=== PATIENT | female | born 1955 | race Caucasian/White ===

== ENCOUNTER 2018-03-10 20:59 | Emergency (ER) | payer BC ==
[2018-03-10 21:12] VITALS: BP 139/85
[2018-03-10] MEDS ORDERED: LET GEL TOPICAL 1 EA SYR TP ONE (21:25)
--- NOTE | 2018-03-10 22:07 | EDPHY ---
H & P Smoking Status: Never smoked Time Seen by Provider: 03/10/18 22:05 HPI/ROS: CHIEF COMPLAINT: Facial laceration HISTORY OF PRESENT ILLNESS: Patient is a 62-year-old male who suffered a forehead laceration after she tripped and fell on believe she bumped herself in the forehead with her bracelets. She denies any loss consciousness, neck pain, use of blood thinners, chest pain, shortness of breath, syncope. REVIEW OF SYSTEMS: Constitutional: No fever, no chills. Eyes: No discharge. No eye pain ENT: No sore throat. Cardiovascular: No chest pain, no palpitations. Respiratory: No cough, no shortness of breath. Gastrointestinal: No abdominal pain, no vomiting. Genitourinary: No hematuria. Musculoskeletal: No back pain. Skin: No rashes. Neurological: No headache. (Roger Solis) Physical Exam: General Appearance: Alert and no distress. Eyes: Pupils equal and round no injection. Respiratory: Chest is nontender, lungs are clear to auscultation. Cardiac: regular rate and rhythm. Gastrointestinal: Abdomen is soft and nontender, no masses, bowel sounds normal. Musculoskeletal: Neck is supple and nontender. Extremities have full range of motion and are nontender. Skin: No rashes. 2 cm vertical laceration midline to the forehead no involvement of the eye or eyelids. (Roger Solis) Constitutional: Initial Vital Signs Temperature (C) 36.3 C 03/10/18 21:09 Heart Rate 95 03/10/18 21:09 Respiratory Rate 20 03/10/18 21:09 Blood Pressure 139/85 H 03/10/18 21:09 O2 Sat (%) 89 L 03/10/18 21:09 O2 Delivery Mode Room Air Allergies/Adverse Reactions: No Known Allergies Allergy (Unverified 03/10/18 21:11) Home Medications: Medication Instructions Recorded NK [No Known Home Meds] 03/10/18 Medical Decision Making Procedures: Procedure: Laceration repair. Verbal consent was obtained from the patient. The facial laceration on the midline forehead was anesthetized in the usual fashion. The wound was irrigated , draped and explored to its base. There were no deep structures involved. No tendon injury was identified. The wound was repaired with 6.0 nylon. The wound repair was well approximated with 6 sutures. The procedure was performed by myself. (Roger Solis) Differential Diagnosis: Skull fracture, orbital injury, open globe, facial bone fracture, right wrist fracture (Roger Solis) The patient was evaluated and managed by the physician respiratory care assistant. I have reviewed this chart and I agree with the findings and plan of care as documented , as indicated by my signature. I am the secondary supervising physician. ( Amirah Castaneda) - Data Points Medications Given: Discontinued Medications Hydrocodone Bitart/Acetaminophen (Lockhart 5/325mg Prepack#6) 1 btl TAKEHOME EDNOW ONE Stop: 03/10/18 22:14 Last Admin: 03/10/18 22:14 Dose: 1 btl Tetracaine/Epinephrine/Lidocaine (Let Gel Topical) 1 ea TP EDNOW ONE Stop: 03/10/18 21:26 Last Admin: 03/10/18 21:34 Dose: Not Given Departure - Departure Disposition: Home, Routine, Self-Care Clinical Impression: Strain of wrist, left, Minor closed head injury, Facial laceration Condition: Good Instructions: Hydrocodone/Acetaminophen (By mouth), Laceration (ED) Additional Instructions: Follow-up in 5 days for suture removed Referrals: NONE *PRIMARY CARE P,. [Primary Care Provider] - As per Instructions [facility],. [Clinic] - As per Instructions
[2018-03-10] MEDS ORDERED: HYDROCOD/APAP 5/325 PREPACK#6 BTL TAKEHOME ONE ×2 (22:13)
== END 2018-03-10 22:16 | disposition home or self-care (01) ==
PROC: 0HQ1XZZ Repair Face Skin, External Approach (ICD-10-PCS; principal; 2018-03-10)
DX: S01.81XA Laceration without foreign body of other part of head, initial encounter (principal); S69.82XA Other specified injuries of left wrist, hand and finger(s), initial encounter; W01.198A Fall on same level from slipping, tripping and stumbling with subsequent striking against other object, initial encounter